=== PATIENT | male | born 2000 | race Two or more races ===

== ENCOUNTER 2022-12-10 09:17 | Emergency (ER) | payer OTHER ==
[~2022-12-10] VITALS: Ht 190.5 cm; Wt 74.8 kg
[2022-12-10 09:24] VITALS: BP 125/63
[2022-12-10] MEDS ORDERED: PENI500T PO (09:42)
[2022-12-10] MEDS ORDERED: BENZ1LOZ58 PO (09:42)
[2022-12-10] MEDS ORDERED: LIDOCAINE VISCOUS 2% UD 15 ML UDC ONE (09:48)
--- NOTE | 2022-12-10 09:49 | NUR ---
COVID, STREP SWAB COLLECTED. SENT TO LAB.
--- NOTE | 2022-12-10 09:53 | NUR ---
Patient discharged to home in stable condition. Written and verbal after care instructions given. Patient verbalizes understanding of instruction.
[2022-12-10] MEDS ORDERED: LIDOCAINE VISCOUS 2% UD 15 ML UDC MM ONE (10:00)
[2022-12-10] MEDS ORDERED: DEXAMETHASONE SOD PHOSPHATE 10 MG/ML VIAL IM ONE (10:00)
== END 2022-12-10 09:55 | disposition home or self-care (01) ==
LOC: ER 09:26
DX: J02.9 Acute pharyngitis, unspecified (principal); Z20.822 Contact with and (suspected) exposure to COVID-19
CPT/HCPCS: 99283; 87426; 96372; 87880; J1100; C9803; 86403-TC